=== PATIENT | female | born 1990 | race Caucasian/White ===

== ENCOUNTER 2016-12-11 16:39 | Emergency (ER) | payer OTHER | END 2016-12-11 19:06 | disposition home or self-care (01) | LOC: FER 16:39 | DX: S80.02XA Contusion of left knee, initial encounter (principal); S80.01XA Contusion of right knee, initial encounter; S50.311A Abrasion of right elbow, initial encounter; M54.2 Cervicalgia; R10.819 Abdominal tenderness, unspecified site; R51 Headache; F17.200 Nicotine dependence, unspecified, uncomplicated; V86.59XA Driver of other special all-terrain or other off-road motor vehicle injured in nontraffic accident, initial encounter | CPT/HCPCS: 70450; 71250; 72125; 73080; 73564; J1885 ==